=== PATIENT | female | born 1990 | race Two or more races ===

== ENCOUNTER 2020-04-15 15:30 | Outpatient (CLI) | payer OTHER | END 2020-04-15 15:40 | disposition home or self-care (01) | LOC: LAB 15:30 | PROVIDERS: ATTEND Specialist | DX: N61.1 Abscess of the breast and nipple (principal) ==

== ENCOUNTER 2020-06-24 09:54 | Outpatient (CLI) | payer OTHER | END 2020-06-24 09:57 | disposition home or self-care (01) | LOC: SONOGRAMA 09:54 | PROVIDERS: ATTEND Pathology Anatomic Pathology & Clinical Pathology | DX: N63.20 Unspecified lump in the left breast, unspecified quadrant (principal) ==

== ENCOUNTER 2022-02-21 09:12 | Outpatient (CLI) | payer OTHER | END 2022-02-21 09:32 | disposition home or self-care (01) | LOC: RX STUDY 09:12 | PROVIDERS: ATTEND Obstetrics & Gynecology Obstetrics | DX: N20.0 Calculus of kidney (principal); N97.2 Female infertility of uterine origin; N84.0 Polyp of corpus uteri ==

== ENCOUNTER → 2022-02-21 11:27 | Outpatient (CLI) | payer OTHER | END | disposition home or self-care (01) | LOC: LAB 11:27 | PROVIDERS: ATTEND Radiology Diagnostic Radiology | DX: Z32.00 Encounter for pregnancy test, result unknown (principal) ==